=== PATIENT | female | born 1980 | race Two or more races ===

== ENCOUNTER 2017-02-10 08:07 | Day surgery (SDC) | payer BC, MEDICAID, OTHER ==
[2017-02-10] MEDS ORDERED: PROPOFOL INJ 200 MG/20 ML VIAL IV ONE ×2 (09:55→11:11)
[2017-02-10] MEDS ORDERED: PROMETHAZINE HCL INJ 25 MG/1 ML VIAL IV PRN ×2 (10:56)
[2017-02-10] MEDS ORDERED: MEPERIDINE HCL/PF INJ 25 MG/1 ML DISP.SYRIN IV PRN (10:56)
[2017-02-10] MEDS ORDERED: DIPHENHYDRAMINE HCL 50 MG/ML VIAL IV PRN (10:56)
[2017-02-10 12:26] VITALS: BP 115/79
--- NOTE | 2017-02-10 12:34 | Operative Report ---
Operative Report DATE OF SURGERY: 02/10/17 Operative Report: The risks, benefits and alternatives of the procedure including risks of bleeding, perforation requiring surgery are explained to the patient in detail and informed consent is obtained. Patient is taken back to the operating room and placed in the left, lateral decubital position. Timeout was called. Propofol medications administered. A rectal examination is done which did not reveal any masses, tears or fissures. An Olympus videoscope was inserted into the patient's rectum. The scope was then carefully advanced all the way to the cecum. Cecum was identified by the usual anatomical landmarks including the ileocecal valve as well as the appendiceal office. Photodocumentation is obtained. The scope was then sequentially pulled back via the rest segments of the colon including the ascending colon, hepatic flexure, transverse colon, splenic flexure, descending colon and finding to the rectosigmoid portions of the colon. Retroflexion maneuvers performed. PREOPERATIVE DIAGNOSIS: A rectal bleeding POSTOPERATIVE DIAGNOSIS: Mild right-sided colon inflammation status post biopsy. Internal hemorrhoids OPERATION: Colonoscopy with biopsy SURGEON: KORTNEY MCCLELLAND ANESTHESIA: LMAC TISSUE REMOVED OR ALTERED: As noted above. COMPLICATIONS: None. ESTIMATED BLOOD LOSS: None. INTRAOPERATIVE FINDINGS: As noted above. PROCEDURE: Patient tolerated procedure well. No immediate postprocedure complications are noted. Patient discharged in good condition. Discharge date 02/10/2017. Discharge diet: Regular. Discharge activity: Regular. 2-3 week follow-up to discuss findings. Patient is instructed to call the office or proceed to the emergency room should there be any further problems or questions. We will wait on pathology.
== END 2017-02-10 12:28 | disposition home or self-care (01) ==
LOC: OROUT 08:07
PROVIDERS: ATTEND Internal Medicine Gastroenterology
PROC: 0DBF8ZX Excision of Right Large Intestine, Via Natural or Artificial Opening Endoscopic, Diagnostic (ICD-10-PCS; principal; 2017-02-10 10:00)
DX: K62.5 Hemorrhage of anus and rectum (principal); K52.9 Noninfective gastroenteritis and colitis, unspecified; K64.8 Other hemorrhoids; K21.9 Gastro-esophageal reflux disease without esophagitis; J45.20 Mild intermittent asthma, uncomplicated; G43.919 Migraine, unspecified, intractable, without status migrainosus; K58.9 Irritable bowel syndrome, unspecified; Z87.891 Personal history of nicotine dependence; Z79.899 Other long term (current) drug therapy
CPT/HCPCS: 45380; 81025; 88305 ×2; J2704; 810

== ENCOUNTER 2017-10-20 16:43 | Outpatient (CLI) | payer OTHER ==
--- NOTE | 2017-10-20 17:22 | Non Stress Test Report ---
Non Stress Test Datetime Report Generated by CPN: 10/20/2017 17:22 DEMOGRAPHIC EGA NST: 38.1 INDICATION Indication for Study: Ordered by Provider MONITORING Monitor Explained: Monitor Explained; Test Explained; Patient Verbalized Understanding Time on Monitor: 10/20/2017 16:52 Time off Monitor: 10/20/2017 17:14 NST Duration: 22 NST INTERVENTIONS NST Interventions: PO Hydration; Reposition Patient Physician Notified NST: J. Malone, CNM BABY A: [id number] BABY A Movement : Present Contraction Frequency : irritability FHR Baseline : 120 Accelerations : 15X15 Decelerations : None Variability : Moderate 6-25bpm NST Review: Meets Criteria for Reactive NST NST Review and Verified By : EMMY Morales Results: Reactive NST REPORT Report Trigger: Send Report
== END 2017-10-20 17:15 | disposition home or self-care (01) ==
LOC: LC 16:43
PROVIDERS: ATTEND Obstetrics & Gynecology
PROC: 4A1HXCZ Monitoring of Products of Conception, Cardiac Rate, External Approach (ICD-10-PCS; principal; 2017-10-20)
DX: Z34.93 Encounter for supervision of normal pregnancy, unspecified, third trimester (principal); Z3A.38 38 weeks gestation of pregnancy
CPT/HCPCS: 59025

== ENCOUNTER 2017-11-08 18:56 | Inpatient (IN) | payer OTHER ==
[2017-11-08] MEDS ORDERED: PENICILLIN G POTASSIUM 5,000,000 UNIT in DEXTROSE 5%-WATER 100 ML IV ONE (19:16)
[2017-11-08] MEDS ORDERED: RINGERS SOLUTION,LACTATED 1,000 ML IV PRN (19:16)
[2017-11-08] MEDS ORDERED: PENICILLIN G-K 5 MILLION UNIT VIAL ONE ×2 (19:25→23:10)
--- NOTE | 2017-11-08 19:26 | Admission Physical ---
Datetime Report Generated by CPN: 11/08/2017 19:26 CURRENT ADMISSION Chief Complaint: Uterine Contractions Indication for Induction: Not Applicable Admit Impression : Term, Intrauterine ; Active Labor Admit Plan: Admit to Unit; Initiate Labor Augmentation Protocol ALLERGIES Medication Allergies: Yes Medication Allergies: Sulfa (Sulfonamide Antibiotics)/Hives (10/20/2017); clindamycin/Blisters (10/20/2017) Latex: Latex Allergies OBSTETRICAL HISTORY EDC: 11/02/2017 00:00 : 4 Para: 3 Term: 3 : 0 SAB: 0 IAB: 0 Ectopic: 0 Cesareans: 0 VBACs: 0 Multiple Births: 0 Gestational Diabetes: Yes Rh Sensitization: No Incompetent Cervix: No RADHA: No Infertility: No ART Treatment: No Uterine Anomaly: No IUGR: No Hx Previous C/S: No Macrosomia: No Hx Loss/Stillborn: No PIH: No Hx : No Placenta Previa/Abruption: No Depression/PP Depression: No PTL/PROM: No Post Hemorrhage: No Current Procedures: Ultrasound; NST Obstetrical History Comments: G1- 1998 G2- 1999 G3- 2003 G4- current GDM- diet controlled, HSV on valtrex SEE RECORDS Alcohol: No Marijuana : No Cocaine: No Other Illicit Drugs: No Cigarettes: Former Smoker. 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 Surgery: No Heart Disease: No Hosp/Surgery: Yes Autoimmune Disorder: No Anesthetic Complications: No Kidney Disease: No Abnormal Pap Smear: Yes Neuro/Epilepsy: No Psychiatric Disorders: No Other Medical Diseases: Yes Hepatitis/Liver Disease: No Significant Family History: No Varicosities/Phlebitis: No Trauma/Violence : No Thyroid Dysfunction: No Medical History Comments: asthma as a child, childbirth, 2000 appendectomoy, wisdom teeth, abnormal pap at 14 cleared since, IBS, INFECTIOUS HISTORY Gonorrhea: No Genital Herpes: Yes Chlamydia: No Tuberculosis: No Syphilis: No Hepatitis: No HIV/AIDS Exposure: No Rash or Viral Illness: No HPV: No Infectious History Comments: hx gonorrhea and chlamydia, genital herpes PHYSICAL EXAM General: Normal HEENT: Normal Neurologic: Normal Thyroid: Normal Heart: Normal Lungs: Normal Breast: Normal Back: Normal Abdomen: Normal Genitourinary Exam: Normal Extremities: Normal DTRs: Normal Pelvic Type: Adequate Vital Signs: Reviewed VAGINAL EXAM Dilatation: 4 Effacement: 80 Station: -2 MEMBRANES Pooling: Negative Membranes: Intact FETUS A EGA: 40.6 Monitoring: External US FHR- Baseline: 130 Variability: Moderate 6-25bpm Accelerations: 15X15 Decelerations: None FHR Category: Category I Estimated Weight (gm): 3500 Presentation: Vertex PLANS FOR LABOR AND DELIVERY Labor and Delivery: None Pain Management: Medications Feeding Preference: Both Benefit of Breast Feed Discussed: Yes Circumcision: N/A INFORMED CONSENT Signature: with User ID: [email or web address]
[2017-11-08] MEDS ORDERED: MISOPROSTOL 0.2 MG TABLET ONE (19:34)
[2017-11-08] MEDS ORDERED: EPHEDRINE SULFATE INJ 50 MG/1 ML AMPULE ONE (19:35)
[2017-11-08] MEDS ORDERED: FENTANYL/BUPIVACAINE/NS/PF 300 MCG/150 ML RTUINJ EPI ONE (19:35)
[2017-11-08] MEDS ORDERED: LIDOCAINE 1% INJ-PF (10 MG/ML) 30 ML SDV ONE (19:35)
[2017-11-08] MEDS ORDERED: OXYTOCIN/NORMAL SALINE 0 UNIT/0 ML RTUINJ ONE (19:35)
[2017-11-08] MEDS ORDERED: BUPIVACAINE HCL 0.5 % INJ/PF 30 ML SDV ONE (19:36)
[2017-11-08 19:50] LABS: ABSOLUTE BASOPHILS # (AUTO) 0.1 10^3/uL (0.0-0.2); ABSOLUTE EOSINOPHILS # (AUTO) 0.1 10^3/uL (0.0-0.6); ABSOLUTE LYMPHOCYTES (AUTO) 2.2 10^3/uL (0.5-4.7); ABSOLUTE MONOCYTES (AUTO) 0.8 10^3/uL (0.1-1.4); ABSOLUTE NEUT (AUTO) 8.6 10^3/uL (1.7-8.2); BASOPHILS % (AUTO) 0.7 % (0-2); EOSINOPHILS % (AUTO) 1.1 % (0-6); HEMATOCRIT 43.5 % (36.0-47.0); HEMOGLOBIN 15.1 g/dL (12.0-15.5); LYMPHOCYTES % (AUTO) 18.5 % (13-45); MEAN CORPUSCULAR HEMOGLOBIN 29.5 pg (27.0-33.4); MEAN CORPUSCULAR HGB CONC 34.8 g/dL (32.0-36.0); MEAN CORPUSCULAR VOLUME 85 fl (80-97); MONOCYTES % (AUTO) 6.8 % (3-13); PLATELET COUNT 209 10^3/uL (150-450); RED BLOOD COUNT 5.12 10^6/uL (3.72-5.28); RED CELL DISTRIBUTION WIDTH 15.1 % (11.5-14.0); SEGMENTED NEUTROPHILS % (AUTO) 72.9 % (42-78); TOTAL CELLS COUNTED % (AUTO) 100 %; WHITE BLOOD COUNT 11.8 10^3/uL (4.0-10.5)
[2017-11-08 20:30] LABS: URINE AMPHETAMINES SCREEN NEGATIVE; URINE BARBITURATES SCREEN NEGATIVE; URINE BENZODIAZEPINES SCREEN NEGATIVE; URINE COCAINE SCREEN NEGATIVE; URINE MARIJUANA (THC) SCREEN NEGATIVE; URINE METHADONE SCREEN NEGATIVE; URINE PHENCYCLIDINE SCREEN NEGATIVE
[2017-11-08] MEDS ORDERED: ONDANSETRON HCL INJ/PF 4 MG/2 ML SDV ONE (21:10)
[2017-11-08] MEDS ORDERED: ONDANSETRON HCL INJ/PF 4 MG/2 ML SDV IV ONE (21:30)
[2017-11-08] MEDS ORDERED: PENICILLIN G POTASSIUM 2,500,000 UNIT in DEXTROSE 5%-WATER 50 ML IV SCH (23:22)
[2017-11-08] MEDS ORDERED: OXYTOCIN/NORMAL SALINE 20 UNIT/1,000 ML RTUINJ IV PRN (23:44)
[2017-11-08] MEDS ORDERED: OXYTOCIN/NORMAL SALINE 20 UNIT/1,000 ML RTUINJ ONE (23:46)
[2017-11-09] MEDS ORDERED: DIPHENHYDRAMINE HCL 25 MG CAPSULE PO PRN (03:22)
[2017-11-09] MEDS ORDERED: ACETAMINOPHEN WITH CODEINE #3 TABLET PO PRN (03:22)
[2017-11-09] MEDS ORDERED: OXYTOCIN/NORMAL SALINE 20 UNIT/1,000 ML RTUINJ IV PRN (03:22)
[2017-11-09] MEDS ORDERED: BENZOCAINE/MENTHOL AEROSOL SPRAY 56 ML TOP PRN (03:22)
[2017-11-09] MEDS ORDERED: MEASLES,MUMPS&RUBELLA VACC/PF 0.5 ML VIAL SUBCUT PRN ×2 (03:22→09:30)
[2017-11-09] MEDS ORDERED: DIBUCAINE 1% OINTMENT 28 GM TP PRN (03:22)
[2017-11-09] MEDS ORDERED: ACETAMINOPHEN 650 MG SUPP.RECT PR PRN (03:22)
[2017-11-09] MEDS ORDERED: PSEUDOEPHEDRINE HCL 30 MG TABLET PO PRN (03:22)
[2017-11-09] MEDS ORDERED: DIPH/PERTUSS(ACELL)/TETANUS VAC/PF 0.5 ML SYR (>=10YO) IM PRN ×2 (03:22→09:30)
[2017-11-09] MEDS ORDERED: PROMETHAZINE HCL INJ 25 MG/1 ML VIAL IV PRN ×2 (03:22→09:30)
[2017-11-09] MEDS ORDERED: NA PHOS,M-B/NA PHOS,DI-BA (ADULT) 133 ML ENEMA PR PRN (03:22)
[2017-11-09] MEDS ORDERED: PROMETHAZINE HCL 25 MG SUPP.RECT PR PRN (03:22)
[2017-11-09] MEDS ORDERED: GLYCERIN/WITCH HAZEL LEAF 1 EACH MED..PAD TP PRN (03:22)
[2017-11-09] MEDS ORDERED: ZOLPIDEM TARTRATE 5 MG TABLET PO PRN (03:22)
[2017-11-09] MEDS ORDERED: PROMETHAZINE HCL 25 MG TABLET PO PRN (03:22)
[2017-11-09] MEDS ORDERED: MEPERIDINE HCL/PF INJ 25 MG/1 ML DISP.SYRIN ONE (03:31)
[2017-11-09] MEDS ORDERED: AMPICILLIN SOD/SULBACTAM 3 GM VIAL ONE (03:37)
[2017-11-09] MEDS ORDERED: ACETAMINOPHEN 325 MG TABLET ONE (03:37)
[2017-11-09] MEDS ORDERED: ONDANSETRON HCL INJ/PF 4 MG/2 ML SDV ONE (04:19)
--- NOTE | 2017-11-09 04:56 | Delivery Summary ---
Del Sum A-C Datetime Report Generated by CPN: 11/09/2017 04:56 DELIVERY PERSONNEL DELIVERY PERSONNEL: [id number] Delivery Doctor:: Zahraa Bradshaw MD Labor and Delivery Nurse:: Candace Minaya, RN Nursery Nurse:: Estephania Raman, RN MATERNAL INFORMATION Delivery Anesthesia: Epidural Medications After Delivery: Pitocin Drip 20 Units/1000ml NSS Estimated Blood Loss (ml): 150 Maternal Complications: None LABOR SUMMARY EDC: 11/02/2017 00:00 No. Babies in Womb: 1 Attempted: No Labor Anesthesia: Epidural LABOR INFORMATION Onset of Labor: 11/08/2017 20:30 Complete Dilatation: 11/09/2017 02:36 Oxytocin: Augmentation Group B Beta Strep: positive Antibiotics # of Doses: 2 Antibiotics Time of Last Dose: 2316 Name of Antibiotic Given: PCN Steroids Given: None Reason Steroids Not Administered: Not Applicable MEMBRANES Membranes Rupture Method: Spontaneous Rupture of Membranes: 11/09/2017 01:21 Length of Rupture (hr): 1.72 Amniotic Fluid Color: Clear Amniotic Fluid Amount: Moderate Amniotic Fluid Odor: None STAGES OF LABOR Stage 1 hr: 6 Stage 1 min: 6 Stage 2 hr: 0 Stage 2 min: 28 Stage 3 hr: 0 Stage 3 min: 4 Total Time in Labor hr: 6 Total Time in Labor min: 38 VAGINAL DELIVERY Episiotomy: None Laceration #1: None Laceration Extension #1: N/A Laceration Repair: Not Applicable Sponge Count Correct: N/A Sharps Count Correct: N/A CSECTION DELIVERY Primary Indication: N/A Secondary Indication: N/A CSection Incidence: N/A Labor: N/A Elective: N/A CSection Incision: N/A BABY A INFORMATION Infant Delivery Date/Time: 11/09/2017 03:04 Method of Delivery: Vaginal Born in Route : No : N/A Forceps: N/A Vacuum Extraction: N/A Shoulder Dystocia : No PRESENTATION/POSITION BABY A Presentation: Cephalic Cephalic Presentation: Vertex Vertex Position: Left Occipital Anterior Breech Presentation: N/A PLACENTA INFORMATION BABY A Placenta Delivery Time : 11/09/2017 03:08 Placenta Method of Delivery: Spontaneous Placenta Status: Delivered SCORES BABY A Heart Rate 1 min: >100 bpm Resp Effort 1 min: Good Cry Reflex Irritability 1 min: Cough or Sneeze or Pulls Away Muscle Tone 1 min: Active Motion Color 1 min: Blue/Pale SCORE 1 MIN: 8 Heart Rate 5 min: >100 bpm Resp Effort 5 min: Good Cry Reflex Irritability 5 min: Cough or Sneeze or Pulls Away Muscle Tone 5 min: Active Motion Color 5 min: Body [place], Extremities Blue SCORE 5 MIN: 9 INFANT INFORMATION BABY A Gestational Age at Delivery: 41.0 Gestational Status: Late Term- 41- 41.6 Weeks Outcome : Liveborn Infant Condition : Stable Sex: Female IDENTIFICATION BABY A Verification Date/Time: 11/09/2017 03:46 ID Band Number: [id number] Mother's Name Verified: Yes RN Verifying Infant: Christina Minaya RN/ Luna Santos RN WEIGHT/LENGTH BABY A Infant Birthweight (gm): 3200 Infant Weight (lb): 7 Weight (oz): 1 Length (in): 20.00 Infant Length (cm): 50.80 CORD INFORMATION BABY A No. Cord Vessels: 3 Nuchal Cord : N/A Cord Blood Taken: Yes-For Storage (Mom's Blood type +) Infant Suction: Mouth; Nose ASSESSMENT BABY A Skin to Skin: Yes Skin to Skin Time (min): 60 BABY B INFORMATION : N/A SIGNATURES Signature: with User ID: [email or web address]
[2017-11-09] MEDS: IBUPROFEN 800 MG TABLET PO SCH ×3 (07:23→21:45)
[2017-11-09] MEDS: FAMOTIDINE 20 MG TABLET PO SCH ×2 (09:53→21:45)
[2017-11-09] MEDS: DOCUSATE SODIUM 100 MG CAPSULE PO SCH ×2 (09:53→18:34)
[2017-11-09] MEDS: PRENATAL VITAMIN W DHA CAPSULE PO SCH (09:53)
[2017-11-09] MEDS: SENNOSIDES/DOCUSATE 8.6-50 MG 1 EACH TABLET PO SCH (09:53)
[2017-11-09] MEDS: FERROUS SULFATE 325 MG TABLET PO SCH ×2 (09:53→18:34)
--- NOTE | 2017-11-09 10:36 | PDOC PROGRESS REPORT ---
Subjective-OB Progress Note for:: 11/09/17 Physical Exam (OB) Vital Signs: Temp Pulse Resp BP Pulse Ox 98.8 F 92 18 115/67 97 11/09/17 07:21 11/09/17 07:21 11/09/17 07:21 11/09/17 07:21 11/09/17 07:21 Intake & Output 11/08/17 11/09/17 11/10/17 06:59 06:59 06:59 Weight 100.2 kg - Lochia Lochia Amount: Small 10-25 ml Lochia Color: Rubra/Red - Abdomen Description: Soft, Round Hernia Present: No Bowel Sounds: Normoactive Flatus Presence: Present Stool: No Fundal Description: Firm, Midline Fundal Height: u/u - u/2 Objective-Diagnostic Laboratory: 11/08/17 19:36 11/08/17 11/08/17 19:36 19:36 WBC 11.8 H RBC 5.12 Hgb 15.1 Hct 43.5 MCV 85 MCH 29.5 MCHC 34.8 RDW 15.1 H Plt Count 209 Seg Neutrophils % 72.9 Lymphocytes % 18.5 Monocytes % 6.8 Eosinophils % 1.1 Basophils % 0.7 Absolute Neutrophils 8.6 H Absolute Lymphocytes 2.2 Absolute Monocytes 0.8 Absolute Eosinophils 0.1 Absolute Basophils 0.1 Blood Type AB POSITIVE Antibody Screen NEGATIVE
[2017-11-09] MEDS: ACETAMINOPHEN WITH CODEINE #3 TABLET PO PRN ×2 (15:03→19:23)
[2017-11-10] MEDS: ACETAMINOPHEN WITH CODEINE #3 TABLET PO PRN (01:49)
[2017-11-10] MEDS: IBUPROFEN 800 MG TABLET PO SCH ×3 (06:39→22:16)
[2017-11-10] MEDS: MAGNESIUM HYDROXIDE SUSP 30 ML UDCUP PO PRN ×2 (06:43→22:19)
[2017-11-10 07:34] LABS: HEMATOCRIT 39.1 % (36.0-47.0); HEMOGLOBIN 13.8 g/dL (12.0-15.5); MEAN CORPUSCULAR HEMOGLOBIN 30.1 pg (27.0-33.4); MEAN CORPUSCULAR HGB CONC 35.2 g/dL (32.0-36.0); MEAN CORPUSCULAR VOLUME 86 fl (80-97); PLATELET COUNT 186 10^3/uL (150-450); RED BLOOD COUNT 4.57 10^6/uL (3.72-5.28); WHITE BLOOD COUNT 10.2 10^3/uL (4.0-10.5)
[2017-11-10] MEDS: SENNOSIDES/DOCUSATE 8.6-50 MG 1 EACH TABLET PO SCH (09:58)
[2017-11-10] MEDS: FERROUS SULFATE 325 MG TABLET PO SCH ×3 (09:58→18:27)
[2017-11-10] MEDS: FAMOTIDINE 20 MG TABLET PO SCH ×2 (09:58→22:16)
[2017-11-10] MEDS: DOCUSATE SODIUM 100 MG CAPSULE PO SCH ×2 (09:58→18:25)
[2017-11-10] MEDS: PRENATAL VITAMIN W DHA CAPSULE PO SCH (09:58)
--- NOTE | 2017-11-10 16:32 | PDOC PROGRESS REPORT ---
Subjective-OB Progress Note for:: 11/10/17 Subjective: reports bleeding slowing, pain controlled with current meds, no needs expressed Physical Exam (OB) Vital Signs: Temp Pulse Resp BP Pulse Ox 97.6 F 73 18 106/67 97 11/10/17 08:03 11/10/17 08:03 11/10/17 08:03 11/10/17 08:03 11/10/17 08:03 Intake & Output 11/09/17 11/10/17 11/11/17 06:59 06:59 06:59 Intake Total 500 Balance 500 Weight 100.2 kg - Abdomen Description: Soft, Round Hernia Present: No Fundal Description: Firm, Midline Fundal Height: u/u - u/2 - Abdominal Distension: No distension Tenderness: Nontender - Extremities Lower extremities: Madhav's sign - neg Calf: Normal, Nontender Objective-Diagnostic Laboratory: 11/10/17 07:05 11/10/17 07:05 WBC 10.2 RBC 4.57 Hgb 13.8 Hct 39.1 MCV 86 MCH 30.1 MCHC 35.2 RDW 15.0 H Plt Count 186 Assessment and Plan(PN) - Assessment and Plan (1) Delivery normal Is this a current diagnosis for this admission?: Yes - Time Spent with Patient Time with patient: Less than 15 minutes - Disposition Anticipated Discharge: Home Within: within 24 hours
[2017-11-11] MEDS: ACETAMINOPHEN WITH CODEINE #3 TABLET PO PRN (00:01)
[2017-11-11] MEDS: IBUPROFEN 800 MG TABLET PO SCH (05:07)
[2017-11-11] MEDS: DOCUSATE SODIUM 100 MG CAPSULE PO SCH (09:07)
[2017-11-11] MEDS: SENNOSIDES/DOCUSATE 8.6-50 MG 1 EACH TABLET PO SCH (09:07)
[2017-11-11] MEDS: PRENATAL VITAMIN W DHA CAPSULE PO SCH (09:07)
[2017-11-11] MEDS: FAMOTIDINE 20 MG TABLET PO SCH (09:07)
[2017-11-11] MEDS: FERROUS SULFATE 325 MG TABLET PO SCH (09:07)
[2017-11-11 10:07] VITALS: BP 115/67
--- NOTE | 2017-11-11 12:27 | PDOC DISCHARGE SUMMARY ---
Final Diagnosis Discharge Date: 11/11/17 - Final Diagnosis (1) Delivery normal Is this a current diagnosis for this admission?: Yes Discharge Data - Discharge Medication Prescriptions: Ibuprofen [Motrin 800 mg Tablet] 800 mg PO Q8HP PRN #60 tablet PRN Reason: Home Medications: Vits96/Iron Fum/Folic [ Tablet] 1 each PO DAILY 10/20/17 Ibuprofen [Motrin 800 mg Tablet] 800 mg PO Q8HP PRN #60 tablet 11/11/17 Procedures: NST Intrapartum Procedure(s): Spontaneous Vaginal Delivery - Diagnosis Test Laboratory: Temp Pulse Resp BP Pulse Ox 98.0 F 84 18 115/67 97 11/11/17 10:04 11/11/17 10:04 11/11/17 10:04 11/11/17 08:22 11/11/17 10:04 11/08/17 11/08/17 11/10/17 19:01 19:36 07:05 RBC 5.12 4.57 Hgb 15.1 13.8 Hct 43.5 39.1 Urine Opiates Screen NEGATIVE - Discharge information/Instructions Discharge Activity: Balance Activity w/Rest, Pelvic Rest Discharge Diet: Regular Disposition: HOME, SELF-CARE Follow up with: [facility] in: 4, Weeks
== END 2017-11-11 14:39 | disposition home or self-care (01) | DRG 775 ==
LOC: LC 18:56 → LR 19:38 → 2S 11-09 05:06
PROVIDERS: ADMIT Obstetrics & Gynecology; ATTEND Obstetrics & Gynecology
PROC: 10E0XZZ Delivery of Products of Conception, External Approach (ICD-10-PCS; principal; 2017-11-09)
DX: O48.0 Post-term pregnancy (principal); Z68.41 Body mass index [BMI] 40.0-44.9, adult; O24.420 Gestational diabetes mellitus in childbirth, diet controlled; O99.824 Streptococcus B carrier state complicating childbirth; O99.214 Obesity complicating childbirth; E66.9 Obesity, unspecified; Z3A.41 41 weeks gestation of pregnancy; Z37.0 Single live birth
CPT/HCPCS: 36415; 80307; 85025; 85027; 86592; 86850; 86900; 86901; J0295; J2175; J2405; J2540; J2590; J3010; J3490

== ENCOUNTER → 2019-11-28 | Outpatient (CLI) | payer OTHER ==
--- NOTE | 2019-11-28 15:03 | WOMENS IMAGING REPORT ---
EXAM DESCRIPTION: 3D SCREENING MAMMO BILAT IMAGES COMPLETED DATE/TIME: 11/28/2019 2:33 pm REASON FOR STUDY: Z12.31 ENCNTR SCREEN MAMMOGRAM FOR MALIGNANT NEOPLASM OF BREAST Z12.31 ENCNTR SCR EEN MAMMOGRAM FOR MALIGNANT NEOPLASM OF [place]AN COMPARISON: None. EXAM PARAMETERS: Views: Standard craniocaudal and mediolateral oblique views of each breast recorded using digital acquisition and breast tomosynthesis. Read with the assistance of CAD. .[facility] - R2 [employer]listed [employer]cre[employer]/Aerial Observer/Gunner Version 9.2 LIMITATIONS: None. FINDINGS: No suspicious masses, suspicious calcifications or architectural distortion. No areas of c oncern. IMPRESSION: NEGATIVE MAMMOGRAM. BIRADS 1. BREAST DENSITY: b. There are scattered areas of fibroglandular density. BIRAD: ASSESSMENT: 1 NEGATIVE RECOMMENDATION: ROUTINE SCREENING COMMENT: The patient has been notified of the results by letter per MQSA requirements. Additional no tification policies are in place for contacting patient with suspicious or incomplete findings. Quality ID #[id number]: The [employer] recommends an annual screening mammogram for women aged 40 years or over. This facility utilizes a reminder system to ensure that all patients receive reminder letters, and/or direct phone calls for appointments. This includes reminders for routine scr eening mammograms, diagnostic mammograms, or other Breast Imaging Interventions when appropriate. Th is patient will be placed in the appropriate reminder system. TECHNICAL DOCUMENTATION: FINDING NUMBER: (1) ASSESSMENT: (1) JOB ID: [id number] 2010 [employer]- All Rights Reserved Reading location - IP/workstation name: [email or web address]
== END ==
LOC: WI 13:53
PROVIDERS: ATTEND Physician Assistant
DX: Z12.31 Encounter for screening mammogram for malignant neoplasm of breast (principal)
CPT/HCPCS: 77063; 77067